=== PATIENT | female | born 1985 | race Caucasian/White ===

== ENCOUNTER 2017-09-04 19:31 | Observation (INO) | payer OTHER ==
[2017-09-04 20:21] LABS: PLATELET COUNT 284 10^3/uL (150-400)
[2017-09-04] MEDS ORDERED: NS 1,000 ML IV ONE (20:53)
[2017-09-04] MEDS ORDERED: fentaNYL 100 MCG/2 ML INJ IVP ONE (20:53)
--- NOTE | 2017-09-04 22:55 | EDPHY ---
H & P Time Seen by Provider: 09/04/17 19:58 HPI/ROS: CHIEF COMPLAINT: Vaginal bleeding, pelvic pain HISTORY OF PRESENT ILLNESS: 32-year-old female presents to the emergency department with left lower quadrant abdominal pain and vaginal bleeding. The patient states that she had her last normal menstrual period on 06/24/2017 and states that she has not stopped bleeding since that time. Now 11 days later she continues to have bright red vaginal bleeding. She states that it was much heavier today. She is not passing clots. She is using pads and is soaking a pad within 2 hours. She has an IUD. She does not think she is . She has some mild lower back discomfort. She denies chest pain or difficulty breathing. No fevers or chills. No headache. REVIEW OF SYSTEMS: Constitutional: No fever, no chills. Eyes: No double or blurry vision. ENT: No sore throat. Respiratory: No cough, no shortness of breath. Cardiac: No chest pain. Gastrointestinal: Abdominal pain as above. No vomiting or diarrhea. Genitourinary: No dysuria. Musculoskeletal: No neck or back pain. Skin: No rashes. Neurological: No headache. Past Medical/Surgical History: ParaGard IUD Social History: Single Smoking Status: Never smoked Physical Exam: General Appearance: Alert, no distress. Vital signs are stable. Boyfriend at bedside. Eyes: Pupils equal and round. Extraocular motions are all intact. ENT: Mouth: Mucous membranes moist. Respiratory: No wheezing, rhonchi, or rales, lungs are clear to auscultation. Cardiovascular: Regular rate and rhythm. Gastrointestinal: Abdomen is soft. She has tenderness with palpation in the left lower quadrant. There is no rebound, guarding or masses noted. No CVA tenderness bilaterally. Neurological: Alert and oriented x 3, cranial nerves II through XII grossly intact Skin: Warm and dry, no rashes. Musculoskeletal: Nontender to palpate along the cervical, thoracic or lumbar spine. Neck is supple. Extremities: Full range of motion and no peripheral edema. Psychiatric: Patient is oriented X 3, there is no agitation. Constitutional: Initial Vital Signs Temperature (C) 36.9 C 09/04/17 19:40 Heart Rate 99 09/04/17 19:40 Respiratory Rate 16 09/04/17 19:40 Blood Pressure 114/87 H 09/04/17 19:40 O2 Sat (%) 98 09/04/17 19:40 O2 Delivery Mode Room Air Allergies/Adverse Reactions: lamotrigine [From Lamictal] Allergy (Verified 09/04/17 19:44) Home Medications: Medication Instructions Recorded IBUPROFEN 09/04/17 SUMAtriptan 09/04/17 Medical Decision Making - Diagnostics Imaging Results: Imaging Impressions Obstetrics Ultrasound 09/04/17 20:53 Impression: 1. No intrauterine gestational sac identified. 2. Thick-walled cystic structure in the left ovary may represent an ectopic gestational sac. No pole is identified. 3. Moderate simple appearing free fluid in the cul-de-sac, adnexa and in Morison's pouch. 4. Intrauterine device is in place. Dr. Mullins discussed these findings by telephone with CAIT CORONA on 2016 at 22:56 hours. Imaging: Discussed imaging studies w/ call center dispatcher Radiologist ED Course/Re-evaluation: 32-year-old female presents to the emergency department with vaginal bleeding and pelvic pain. The patient is not concerned about sexually transmitted infections. She is monogamous with her boyfriend. Her boyfriend has no symptoms. Laboratory studies reveal hematocrit of 37.3%. Her vital signs are stable. Pelvic ultrasound has been ordered and is pending. Patient had a positive HCG. I explained to the patient that I was concerned about possible ectopic . Patient was kept NPO. She did request fentanyl for pain. I spoke with the on-call OBGYN, Dr. Michael Kee, who came to evaluate the patient in the emergency department at 11:45 p.m.. Her vital signs are stable. She is not tachycardic. Patient will be admitted to Dr. Kee. Differential Diagnosis: Including but not limited to ectopic , dysfunctional uterine bleeding, IUD malposition, intrauterine - Data Points Laboratory Results: Laboratory Results 09/04/17 20:05 09/04/17 20:05 09/04/17 09/04/17 09/04/17 22:50 20:05 20:05 WBC RBC Hgb Hct MCV MCH MCHC RDW Plt Count MPV Neut % (Auto) Lymph % (Auto) [place] % (Auto) Eos % (Auto) Baso % (Auto) Nucleat RBC Rel Count Absolute Neuts (auto) Absolute Lymphs (auto) Absolute Monos (auto) Absolute Eos (auto) Absolute Basos (auto) Absolute Nucleated RBC Immature Gran % Immature Gran # Sodium Potassium Chloride Carbon Dioxide Anion Gap BUN Creatinine Estimated GFR Glucose Calcium Beta HCG, Qual Beta HCG, Quant 236.97 mIU/mL H mIU/mL (0.00-4.83) Urine Color PALE YELLOW Urine Appearance CLEAR Urine pH 6.0 (5.0-7.5) Ur Specific [place] 1.004 (1.002-1.030) Urine Protein NEGATIVE (NEGATIVE) Urine Ketones NEGATIVE (NEGATIVE) Urine Blood 3+ H (NEGATIVE) Urine Nitrate NEGATIVE (NEGATIVE) Urine Bilirubin NEGATIVE (NEGATIVE) Urine Urobilinogen NEGATIVE EU EU (0.2-1.0) Ur Leukocyte Esterase NEGATIVE (NEGATIVE) Urine RBC 1-3 /hpf /hpf (0-3) Urine WBC 1-3 /hpf /hpf (0-3) Ur Epithelial Cells TRACE /lpf /lpf (NONE-1+) Urine Bacteria 1+ /hpf H /hpf (NONE SEEN) Urine Glucose NEGATIVE (NEGATIVE) Patient ABO/Rh B POSITIVE 09/04/17 09/04/17 09/04/17 20:05 20:05 20:05 WBC 9.52 10^3/uL H 10^3/uL (3.80-9.50) RBC 4.47 10^6/uL 10^6/uL (4.18-5.33) Hgb 12.5 g/dL L g/dL (12.6-16.3) Hct 37.3 % L % (38.0-47.0) MCV 83.4 fL fL (81.5-99.8) MCH 28.0 pg pg (27.9-34.1) MCHC 33.5 g/dL g/dL (32.4-36.7) RDW 14.8 % % (11.5-15.2) Plt Count 284 10^3/uL 10^3/uL (150-400) MPV 11.0 fL fL (8.7-11.7) Neut % (Auto) 63.1 % % (39.3-74.2) Lymph % (Auto) 27.0 % % (15.0-45.0) [place] % (Auto) 6.8 % % (4.5-13.0) Eos % (Auto) 2.2 % % (0.6-7.6) Baso % (Auto) 0.6 % % (0.3-1.7) Nucleat RBC Rel Count 0.0 % % (0.0-0.2) Absolute Neuts (auto) 6.00 10^3/uL 10^3/uL (1.70-6.50) Absolute Lymphs (auto) 2.57 10^3/uL 10^3/uL (1.00-3.00) Absolute Monos (auto) 0.65 10^3/uL 10^3/uL (0.30-0.80) Absolute Eos (auto) 0.21 10^3/uL 10^3/uL (0.03-0.40) Absolute Basos (auto) 0.06 10^3/uL 10^3/uL (0.02-0.10) Absolute Nucleated RBC 0.00 10^3/uL 10^3/uL (0-0.01) Immature Gran % 0.3 % % (0.0-1.1) Immature Gran # 0.03 10^3/uL 10^3/uL (0.00-0.10) Sodium 140 mEq/L mEq/L (134-144) Potassium 3.3 mEq/L L mEq/L (3.5-5.2) Chloride 102 mEq/L mEq/L (97-110) Carbon Dioxide 26 mEq/l mEq/l (22-31) Anion Gap 12 mEq/L mEq/L (8-16) BUN 9 mg/dL mg/dL (7-23) Creatinine 0.7 mg/dL mg/dL (0.6-1.0) Estimated GFR > 60 Glucose 95 mg/dL mg/dL (70-100) Calcium 9.2 mg/dL mg/dL (8.5-10.4) Beta HCG, Qual POSITIVE Beta HCG, Quant Urine Color Urine Appearance Urine pH Ur Specific [place] Urine Protein Urine Ketones Urine Blood Urine Nitrate Urine Bilirubin Urine Urobilinogen Ur Leukocyte Esterase Urine RBC Urine WBC Ur Epithelial Cells Urine Bacteria Urine Glucose Patient ABO/Rh Medications Given: Discontinued Medications Fentanyl (Sublimaze) 50 mcg IVP EDNOW ONE Stop: 09/04/17 20:54 Last Admin: 09/04/17 21:05 Dose: 50 mcg Sodium Chloride (Ns) 1,000 mls @ 0 mls/hr IV ONCE ONE PRN Reason: Wide Open Stop: 09/04/17 20:54 Last Admin: 09/04/17 21:05 Dose: 1,000 mls Departure - Departure Disposition: [facility] Inpatient Acute Clinical Impression: Vaginal bleeding, Possible ectopic Abdominal pain Qualifiers: Abdominal location: left lower quadrant Qualified Code(s): R10.32 - Left lower quadrant pain Condition: Good
--- NOTE | 2017-09-05 01:07 | PDGENHP ---
History and Physical - Chief Complaint LLQ pain, vaginal bleeding - History of Present Illness 32-year-old white female presented to [facility] ED this evening with c/o left lower quadrant pain and vaginal bleeding. Patient reports LMP on 06/24/17 and states that she has not stopped bleeding since 06/24. Bleeding from vagina has been bright red for past 11 days. Bleeding was heavier today than previous. She is not passing clots. She has Paragard IUD in uterus since 2007 or 2008. She says pain has been present during this same period of time. It started in LLQ and radiates across pelvis to RLQ. She denies fever or chills. UPT was positive. Quantitative beta HCG was 237. Transvaginal and transabdominal US was performed. US revealed IUD in uterus. No obvious IUP. Mild to moderate, non- complex free fluid in peritoneal cavity. Small cystic structures on both left and right ovaries. No obvious findings for ectopic seen on US, but cannot be ruled out by US either. I was called ED physician to evaluate patient. She has not previously been . She denies previous abdominal or pelvic surgery. History Information - Allergies/Home Medication List Allergies/Adverse Reactions: lamotrigine [From Lamictal] Allergy (Verified 09/04/17 19:44) Home Medications: IBUPROFEN 09/04/17 [Last Taken Unknown] SUMAtriptan 09/04/17 [Last Taken Unknown] I have personally reviewed and updated: family history, medical history, social history, surgical history Past Medical History: h/o PFO, h/o migraines, h/o pain clinic management of chronic headache pain - Surgical History Reports: no pertinent surgical hx Additional surgical history: wisdom teeth, wrist/thumb surgery - Family History Positive for: non-pertinent - Social History Smoking Status: Never smoked Alcohol Use: Occasionally Additional social history: boyfriend, monogamous; previously went to pain clinic for HAs Review of Systems Review of Systems: ROS: 10pt was reviewed & negative except for what was stated in HPI & below Physical Exam Physical Exam: Temp Pulse Resp BP Pulse Ox 36.9 C 96 16 99/63 L 96 09/04/17 19:40 09/04/17 23:20 09/04/17 23:20 09/04/17 23:20 09/04/17 23:20 Constitutional: no apparent distress, appears nourished Cardiovascular: regular rate and rhythym Respiratory: no respiratory distress, clear to auscultation Gastrointestinal: normoactive bowel sounds, tenderness, other (non-distended, no guarding, no rebound) Genitourinary: other (SSE: BRB in vagina, no vaginal or cervical lacerations, cervix closed, very short IUD strings extruding from os) Skin: warm, normal color Musculoskeletal: full muscle strength, no muscle tenderness Neurologic: AAOx3, sensation intact bilaterally Psychiatric: interacting appropriately, not anxious Lab Data & Imaging Review 09/04/17 20:05 09/04/17 20:05 WBC 9.52 10^3/uL (3.80-9.50) H 09/04/17 20:05 RBC 4.47 10^6/uL (4.18-5.33) 09/04/17 20:05 Hgb 12.5 g/dL (12.6-16.3) L 09/04/17 20:05 Hct 37.3 % (38.0-47.0) L 09/04/17 20:05 MCV 83.4 fL (81.5-99.8) 09/04/17 20:05 MCH 28.0 pg (27.9-34.1) 09/04/17 20:05 MCHC 33.5 g/dL (32.4-36.7) 09/04/17 20:05 RDW 14.8 % (11.5-15.2) 09/04/17 20:05 Plt Count 284 10^3/uL (150-400) 09/04/17 20:05 MPV 11.0 fL (8.7-11.7) 09/04/17 20:05 Neut % (Auto) 63.1 % (39.3-74.2) 09/04/17 20:05 Lymph % (Auto) 27.0 % (15.0-45.0) 09/04/17 20:05 [place] % (Auto) 6.8 % (4.5-13.0) 09/04/17 20:05 Eos % (Auto) 2.2 % (0.6-7.6) 09/04/17 20:05 Baso % (Auto) 0.6 % (0.3-1.7) 09/04/17 20:05 Nucleat RBC Rel Count 0.0 % (0.0-0.2) 09/04/17 20:05 Absolute Neuts (auto) 6.00 10^3/uL (1.70-6.50) 09/04/17 20:05 Absolute Lymphs (auto) 2.57 10^3/uL (1.00-3.00) 09/04/17 20:05 Absolute Monos (auto) 0.65 10^3/uL (0.30-0.80) 09/04/17 20:05 Absolute Eos (auto) 0.21 10^3/uL (0.03-0.40) 09/04/17 20:05 Absolute Basos (auto) 0.06 10^3/uL (0.02-0.10) 09/04/17 20:05 Absolute Nucleated RBC 0.00 10^3/uL (0-0.01) 09/04/17 20:05 Immature Gran % 0.3 % (0.0-1.1) 09/04/17 20:05 Immature Gran # 0.03 10^3/uL (0.00-0.10) 09/04/17 20:05 Sodium 140 mEq/L (134-144) 09/04/17 20:05 Potassium 3.3 mEq/L (3.5-5.2) L 09/04/17 20:05 Chloride 102 mEq/L (97-110) 09/04/17 20:05 Carbon Dioxide 26 mEq/l (22-31) 09/04/17 20:05 Anion Gap 12 mEq/L (8-16) 09/04/17 20:05 BUN 9 mg/dL (7-23) 09/04/17 20:05 Creatinine 0.7 mg/dL (0.6-1.0) 09/04/17 20:05 Estimated GFR > 60 09/04/17 20:05 Glucose 95 mg/dL (70-100) 09/04/17 20:05 Calcium 9.2 mg/dL (8.5-10.4) 09/04/17 20:05 Beta HCG, Qual POSITIVE 09/04/17 20:05 Beta HCG, Quant 236.97 mIU/mL (0.00-4.83) H 09/04/17 20:05 Urine Color PALE YELLOW 09/04/17 20:05 Urine Appearance CLEAR 09/04/17 20:05 Urine pH 6.0 (5.0-7.5) 09/04/17 20:05 Ur Specific [place] 1.004 (1.002-1.030) 09/04/17 20:05 Urine Protein NEGATIVE (NEGATIVE) 09/04/17 20:05 Urine Ketones NEGATIVE (NEGATIVE) 09/04/17 20:05 Urine Blood 3+ (NEGATIVE) H 09/04/17 20:05 Urine Nitrate NEGATIVE (NEGATIVE) 09/04/17 20:05 Urine Bilirubin NEGATIVE (NEGATIVE) 09/04/17 20:05 Urine Urobilinogen NEGATIVE EU (0.2-1.0) 09/04/17 20:05 Ur Leukocyte Esterase NEGATIVE (NEGATIVE) 09/04/17 20:05 Urine RBC 1-3 /hpf (0-3) 09/04/17 20:05 Urine WBC 1-3 /hpf (0-3) 09/04/17 20:05 Ur Epithelial Cells TRACE /lpf (NONE-1+) 09/04/17 20:05 Urine Bacteria 1+ /hpf (NONE SEEN) H 09/04/17 20:05 Urine Glucose NEGATIVE (NEGATIVE) 09/04/17 20:05 Patient ABO/Rh B POSITIVE 09/04/17 22:50 Imaging Review: Discussed US results with radiologist and US tech in radiology suite. Free fluid is non-complex and not obviously a significant volume of blood. Adnexal cysts are also inconclusive for ectopic . No obvious IUP. Intrauterine IUD in proper location. Assessment & Plan Assessment: 32-year-old G1 white female with of unknown location. Possible miscarriage, possible early IUP, possible ectopic , possible ruptured ectopic . Moderate pain, moderate vaginal bleeding. Plan: Plan is to admit overnight for observation, serial vital signs, and serial labs. Will watch closely and re-evaluate closely for possible need for surgery.
[2017-09-05] MEDS: HYDROCODONE/APAP 5/325 TAB PO PRN ×5 (02:49→21:35)
--- NOTE | 2017-09-05 08:28 | SOAPPROG ---
SOAP Progress Note Assessment/Plan: Assessment: 32 yo G1 with of unknown location, differential diagnosis includes miscarriage, early IUP, ectopic . Plan: Continue close monitoring today, including serial abdominal exams, possible laparoscopy today. 09/05/17 08:21 Subjective: Patient reports good pain coverage overnight. She slept. She took [place] once overnight. She reports bleeding on half a pad since 10PM last night. She denies significant faintness or weakness. She wants to let pain medication wear off so she can get an accurate idea of her pelvic/abdominal pain. Objective: Vital Signs Temp Pulse Resp BP Pulse Ox 37.0 C 85 20 96/53 L 96 09/05/17 05:30 09/05/17 05:30 09/05/17 05:30 09/05/17 05:30 09/05/17 05:30 Laboratory Results 09/05/17 05:45 09/04/17 09/05/17 09/06/17 05:59 05:59 05:59 Intake Total 1000 Balance 1000 NAD Lungs clear Abdomen tender to deep palpation (suprapubic and LLQ), no rebound Extremities: no excessive edema Pelvic exam: deferred this AM HCT: 32.7 (down from 37 @ ED admission last night) ICD10 Worksheet Patient Problems: Problems Problem Status Onset Abdominal pain Acute Vaginal bleeding Acute
[2017-09-05] MEDS: LR 1,000 ML IV SCH (09:40)
--- NOTE | 2017-09-05 10:35 | SOAPPROG ---
SOYARITZA Progress Note Assessment/Plan: Assessment: 1) 32 y/o with LMP 08/24 with Paragard IUD in place with a of unknown location - early IUP vs. ectopic Plan: Pt is hemodynamically stable at this time without an acute abdomen, will hold off on surgery Reviewed u/s results; no IUP seen, R ovary with likely corpus luteal cyst; L ovary with cystic structure; free fluid is simple appearing and less likely blood Will check beta HCG in am to see if it appropriately rises Will cont to closely monitor for ectopic sx's Analgesics prn Advance diet as gaudencio now NPO after mn for possible surgery in am 09/06 if inappropriate rise in HCG or ectopic symptoms develop 09/05/17 10:45 Subjective: Pt seen and examined. Doing well, states pain 4-5/10 and that is what is has been throughout the night. Some mild LLQ pain that radiates to right side. Denies any f/c/n/v/CP or SOB. Vaginal bleeding is minimal at this time-changed pad once this am. Objective: Vital Signs Temp Pulse Resp BP Pulse Ox 37.0 C 85 20 96/53 L 96 09/05/17 05:30 09/05/17 05:30 09/05/17 05:30 09/05/17 05:30 09/05/17 05:30 Laboratory Results 09/05/17 05:45 09/04/17 09/05/17 09/06/17 05:59 05:59 05:59 Intake Total 1000 Balance 1000 Physical Exam - Physical Exam General Appearance: WD/WN, alert, no apparent distress Respiratory: lungs clear, normal breath sounds Cardiac/Chest: regular rate, rhythm Abdomen: normal bowel sounds, soft, other (LLQ tenderness-mild; no rebound, no guarding) Pelvic Exam: deferred Skin: normal color, warm/dry Extremities: non-tender, normal inspection Neuro/Psych: alert, normal mood/affect, oriented x 3 ICD10 Worksheet Patient Problems: Problems Problem Status Onset Abdominal pain Acute Acute Vaginal bleeding Acute - ICD10 Problem Qualifiers (1)
--- NOTE | 2017-09-05 16:32 | SOAPPROG ---
CARLOS ENRIQUE Progress Note Assessment/Plan: Assessment: 1) 32 y/o with LMP 08/24 with Par[address] IUD in place with a of unknown location - early IUP vs. ectopic Plan: Pt with pain that is now 6/10, relief with heating pad and [place] x2 Will keep NPO for now if surgery needs to be done secondary to worsening pain Discussed removing IUD and pt does not want it removed at this time, but knows that it will need to be removed Will cont to closely monitor for ectopic sx's 09/05/17 16:28 Subjective: Pt states pain is now 6/10, but relief with [place] and heating pad. Pain was radiating up to her flank on L side. Minimal spotting noted. Mild nausea. Objective: Vital Signs Temp Pulse Resp BP Pulse Ox 36.7 C 74 18 98/64 L 99 09/05/17 08:00 09/05/17 08:00 09/05/17 08:00 09/05/17 08:00 09/05/17 08:00 Laboratory Results 09/05/17 05:45 09/04/17 09/05/17 09/06/17 05:59 05:59 05:59 Intake Total 1000 Balance 1000 Physical Exam - Physical Exam General Appearance: WD/WN, alert, no apparent distress Abdomen: soft, other (mild-mod TTP LLQ; no rebound or guarding) Pelvic Exam: deferred Neuro/Psych: alert, normal mood/affect, oriented x 3 ICD10 Worksheet Patient Problems: Problems Problem Status Onset Abdominal pain Acute Acute Vaginal bleeding Acute - ICD10 Problem Qualifiers (1)
--- NOTE | 2017-09-05 16:32 | SOAPPROG ---
CARLOS ENRIQUE Progress Note Assessment/Plan: Assessment: 1) 32 y/o with LMP 08/24 with [address] IUD in place with a of unknown location - early IUP vs. ectopic Plan: Pt with pain that is now 6/10, relief with heating pad and [place] x2 Will keep NPO for now if surgery needs to be done secondary to worsening pain Discussed removing IUD and pt does not want it removed at this time, but knows that it will need to be removed Will cont to closely monitor for ectopic sx's 09/05/17 16:28 Subjective: Pt states pain is now 6/10, but relief with [place] and heating pad. Pain was radiating up to her flank on L side. Minimal spotting noted. Mild nausea. Objective: Vital Signs Temp Pulse Resp BP Pulse Ox 36.7 C 74 18 98/64 L 99 09/05/17 08:00 09/05/17 08:00 09/05/17 08:00 09/05/17 08:00 09/05/17 08:00 Laboratory Results 09/05/17 05:45 09/04/17 09/05/17 09/06/17 05:59 05:59 05:59 Intake Total 1000 Balance 1000 Physical Exam - Physical Exam General Appearance: WD/WN, alert, no apparent distress Abdomen: soft, other (mild-mod TTP LLQ; no rebound or guarding) Pelvic Exam: deferred Neuro/Psych: alert, normal mood/affect, oriented x 3 ICD10 Worksheet Patient Problems: Problems Problem Status Onset Abdominal pain Acute Acute Vaginal bleeding Acute - ICD10 Problem Qualifiers (1)
[2017-09-05] MEDS: ONDANSETRON DISINTEGRATING 4 MG TAB PO PRN (21:35)
[2017-09-06] MEDS: LR 1,000 ML IV SCH ×2 (00:18→07:59)
[2017-09-06] MEDS: ONDANSETRON DISINTEGRATING 4 MG TAB PO PRN ×2 (03:05→07:19)
[2017-09-06] MEDS: HYDROCODONE/APAP 5/325 TAB PO PRN ×2 (03:05→07:19)
--- NOTE | 2017-09-06 07:40 | SOAPPROG ---
CARLOS ENRIQUE Progress Note Assessment/Plan: Assessment: 32 yo G1 with of unknown location, differential diagnosis includes miscarriage, early IUP, ectopic . Plan: Continue close monitoring today, including serial abdominal exams, possible laparoscopy today. 09/05/17 08:21 09/06/17 07:33 32 yo G1 with of unknown location, differential diagnosis includes miscarriage, early IUP, ectopic . Pain persists overnight. BHCG has abnormal increase over 24 hours. Concern for ectopic . Plan: After reviewing management options in context of patient's persistent and worsening abdominal pain, plan will be for removal of IUD and diagnostic laparoscopy for treatment of suspected ectopic in adnexa. Risks, benefits and alternatives reviewed with patient. She has consented to proceed with surgery. Subjective: Patient reports persistent LLQ pain. She required and still requires narcotic pain meds to tolerate pain. She has been NPO overnight. She reports minimal vaginal bleeding. She denies faintness, weakness. Objective: Vital Signs Temp Pulse Resp BP Pulse Ox 36.3 C 75 16 105/66 94 09/06/17 03:07 09/06/17 03:07 09/06/17 03:07 09/06/17 03:07 09/06/17 03:07 Laboratory Results 09/05/17 05:45 09/05/17 09/06/17 09/07/17 05:59 05:59 05:59 Intake Total 0852 881 2238 Balance 1436 077 9927 Vitals: Reviewed, stable General: NAD, AAOx3 Lungs: clear to auscultation in all kaur Heart: RRR Abdomen: slightly guarded, non-distended, tender to deep palpation (suprapubic and LLQ) Pelvic exam: deferred this AM Extremities: no excessive swelling or edema in BLE ICD10 Worksheet Patient Problems: Problems Problem Status Onset Abdominal pain Acute Acute Vaginal bleeding Acute
--- NOTE | 2017-09-06 07:40 | SOAPPROG ---
CARLOS ENRIQUE Progress Note Assessment/Plan: Assessment: 32 yo G1 with of unknown location, differential diagnosis includes miscarriage, early IUP, ectopic . Plan: Continue close monitoring today, including serial abdominal exams, possible laparoscopy today. 09/05/17 08:21 09/06/17 07:33 32 yo G1 with of unknown location, differential diagnosis includes miscarriage, early IUP, ectopic . Pain persists overnight. BHCG has abnormal increase over 24 hours. Concern for ectopic . Plan: After reviewing management options in context of patient's persistent and worsening abdominal pain, plan will be for removal of IUD and diagnostic laparoscopy for treatment of suspected ectopic in adnexa. Risks, benefits and alternatives reviewed with patient. She has consented to proceed with surgery. Subjective: Patient reports persistent LLQ pain. She required and still requires narcotic pain meds to tolerate pain. She has been NPO overnight. She reports minimal vaginal bleeding. She denies faintness, weakness. Objective: Vital Signs Temp Pulse Resp BP Pulse Ox 36.3 C 75 16 105/66 94 09/06/17 03:07 09/06/17 03:07 09/06/17 03:07 09/06/17 03:07 09/06/17 03:07 Laboratory Results 09/05/17 05:45 09/05/17 09/06/17 09/07/17 05:59 05:59 05:59 Intake Total 0045 297 6130 Balance 7726 655 4054 Vitals: Reviewed, stable General: NAD, AAOx3 Lungs: clear to auscultation in all kaur Heart: RRR Abdomen: slightly guarded, non-distended, tender to deep palpation (suprapubic and LLQ) Pelvic exam: deferred this AM Extremities: no excessive swelling or edema in BLE ICD10 Worksheet Patient Problems: Problems Problem Status Onset Abdominal pain Acute Acute Vaginal bleeding Acute
--- NOTE | 2017-09-06 07:40 | SOAPPROG ---
[facility] Progress Note Assessment/Plan: Assessment: 32 yo G1 with of unknown location, differential diagnosis includes miscarriage, early IUP, ectopic . Plan: Continue close monitoring today, including serial abdominal exams, possible laparoscopy today. 09/05/17 08:21 09/06/17 07:33 32 yo G1 with of unknown location, differential diagnosis includes miscarriage, early IUP, ectopic . Pain persists overnight. BHCG has abnormal increase over 24 hours. Concern for ectopic . Plan: After reviewing management options in context of patient's persistent and worsening abdominal pain, plan will be for removal of IUD and diagnostic laparoscopy for treatment of suspected ectopic in adnexa. Risks, benefits and alternatives reviewed with patient. She has consented to proceed with surgery. Subjective: Patient reports persistent LLQ pain. She required and still requires narcotic pain meds to tolerate pain. She has been NPO overnight. She reports minimal vaginal bleeding. She denies faintness, weakness. Objective: Vital Signs Temp Pulse Resp BP Pulse Ox 36.3 C 75 16 105/66 94 09/06/17 03:07 09/06/17 03:07 09/06/17 03:07 09/06/17 03:07 09/06/17 03:07 Laboratory Results 09/05/17 05:45 09/05/17 09/06/17 09/07/17 05:59 05:59 05:59 Intake Total 8057 764 2219 Balance 9070 615 2769 Vitals: Reviewed, stable General: NAD, AAOx3 Lungs: clear to auscultation in all kaur Heart: RRR Abdomen: slightly guarded, non-distended, tender to deep palpation (suprapubic and LLQ) Pelvic exam: deferred this AM Extremities: no excessive swelling or edema in BLE ICD10 Worksheet Patient Problems: Problems Problem Status Onset Abdominal pain Acute Acute Vaginal bleeding Acute
[2017-09-06] MEDS ORDERED: LR 1,000 ML IV ONE (11:24)
[2017-09-06] MEDS ORDERED: MIDAZOLAM 2 MG/2 ML VIAL IVP ONE (11:31)
--- NOTE | 2017-09-06 11:32 | PDANEPAE ---
ANE History of Present Illness ectopic ANE Past Medical History - Pulmonary History Hx Oxygen in Use at Home: No Hx Sleep Apnea: No Sleep Apnea Screening Result - Last Documented: Negative - Endocrine History Hx Diabetes: No ANE Review of Systems Review of Systems: ANE Patient History - Allergies Allergies/Adverse Reactions: lamotrigine [From Lamictal] Allergy (Verified 09/04/17 19:44) - Home Medications Home Medications: IBUPROFEN 09/04/17 [Last Taken Unknown] SUMAtriptan 09/04/17 [Last Taken Unknown] - NPO status NPO Since - Liquids (Date): 09/05/17 NPO Since - Liquids (Time): 14:00 NPO Since - Solids (Date): 09/05/17 NPO Since - Solids (Time): 14:00 - Smoking Hx Smoking Status: Never smoked - Alcohol Use Alcohol Use: Occasionally ANE Labs/Vital Signs - Labs Result Diagrams: 09/05/17 05:45 09/04/17 20:05 - Vital Signs Blood Pressure: 108/68 Heart Rate: 87 Respiratory Rate: 14 O2 Sat (%): 96 Height: 177.8 cm Weight: 56.699 kg ANE Physical Exam - Airway Neck exam: FROM Mallampati Score: Class 1 Mouth exam: normal dental/mouth exam - Pulmonary Pulmonary: no respiratory distress - Cardiovascular Cardiovascular: regular rate and rhythym - ASA Status ASA Status: II ANE Anesthesia Plan Anesthesia Plan: general endotracheal anesthesia
[2017-09-06] MEDS ORDERED: ceFAZolin 2 GM/SWFI 2 GM/20 ML SYR IVP ONE (11:45)
--- NOTE | 2017-09-06 11:45 | PDHPUP ---
History & Physical Update H&P update statement: This history and physical update is based on an assessment of the patient which was completed after admission or registration (within 24 hours), but prior to the surgery/procedure. H&P update: H&P reviewed & patient examined, no change in patient's condition since H&P completed
[2017-09-06] MEDS ORDERED: ceFAZolin 2 GM/DEXTROSE 100 ML IV ONE (12:00)
[2017-09-06] MEDS ORDERED: PROPOFOL 200 MG/20 ML VIAL ONE (12:02)
[2017-09-06] MEDS ORDERED: ROCURONIUM 50 MG/5 ML VIAL ONE ×2 (12:02→12:32)
[2017-09-06] MEDS ORDERED: fentaNYL 100 MCG/2 ML INJ ONE ×3 (12:02→13:25)
[2017-09-06] MEDS ORDERED: BUPIVACAINE 0.25% 30 ML SDV ONE (12:24)
[2017-09-06] MEDS ORDERED: DEXAMETHASONE 4 MG/ML VIAL ONE (12:32)
[2017-09-06] MEDS ORDERED: ONDANSETRON 4 MG/2 ML VIAL ONE (12:32)
[2017-09-06] MEDS ORDERED: PROMETHAZINE HCL 25 MG/ML INJ IVP PRN (12:52)
[2017-09-06] MEDS ORDERED: OXYCODONE/APAP 5/325 TAB PO PRN ×2 (12:52→13:33)
[2017-09-06] MEDS ORDERED: NALOXONE HCL 0.4 MG/ML INJ IVP PRN (12:52)
[2017-09-06] MEDS ORDERED: ACETAMINOPHEN 500 MG TAB PO PRN (12:52)
[2017-09-06] MEDS ORDERED: ONDANSETRON 4 MG/2 ML VIAL IVP PRN (12:52)
[2017-09-06] MEDS ORDERED: HYDROmorphONE/DILAUDID 1 MG/ML INJ IVP PRN (12:52)
[2017-09-06] MEDS ORDERED: SILVER NITRATE APPLICATOR 1 APPL TP ONE (13:07)
[2017-09-06] MEDS ORDERED: HYDROmorphONE/DILAUDID 1 MG/ML INJ ONE (13:20)
[2017-09-06] MEDS ORDERED: MEPERIDINE 25 MG/ML SYR IVP ONE (13:21)
--- NOTE | 2017-09-06 13:21 | POSTANESTH ---
Post Anesthetic Evaluation Cardiovascular Status: Normal, Stable Respiratory Status: Normal, Stable Level of Consciousness/Mental Status: Can Participate in Eval Pain Control: Adequate, Prn Tx Ordered Complications Possibly Related to Anesthesia: None Noted
[2017-09-06] MEDS ORDERED: MEPERIDINE 25 MG/ML SYR ONE (13:25)
[2017-09-06] MEDS: fentaNYL 100 MCG/2 ML INJ IVP PRN ×2 (13:26→13:37)
--- NOTE | 2017-09-06 13:32 | POSTOPPROG ---
Post Op Note Date of Operation: 09/06/17 Surgeon: Pk Kee [employer] Back Tender: Jil Castellanos Anesthesiologist: Lisa Jensen Pre-op Diagnosis: LLQ pain, vaginal bleeding Post-op Diagnosis: Left fallopian tube ectopic pregnacy, hemoperitoneum Indication: 32 yo G1 WF with LLQ pain, suspect rupt ectopic Procedure: Diagnostic laparoscopy, left salpingectomy Findings: hemoperitoneum, left tubal Inf/Abcess present in the surg proc area at time of surgery?: No Depth: Organ Space EBL: 50-100 Total fluids administered: 1500 mL Complications: None
[2017-09-06 16:06] VITALS: RESP 16
[2017-09-06 17:52] VITALS: BP 115/81; PULSE 86; TEMP 98.3; O2SAT 96
--- NOTE | 2017-09-06 22:51 | SUROPNOTE ---
[facility] Operative Report - Surgery OPERATIVE REPORT DATE OF OPERATION: 09/06/17 SURGEON: Michael Kee MD VP HUMAN RESOURCES: Jil Castellanos MD ANESTHESIA: General Endotracheal ANESTHESIOLOGIST: Lisa Jensen PREOPERATIVE DIAGNOSES: 1. Left lower quadrant pain. 2. Vaginal bleeding. 3. No IUP on US 4. Quantitative beta-HCG with inappropriate 48-hr rise. 5. IUD in endometrial cavity. POSTOPERATIVE DIAGNOSIS: 1. Left lower quadrant pain. 2. Vaginal bleeding. 3. No IUP on US, but concerns for adnexal . 4. Quantitative beta-HCG with inappropriate 48-hr rise. 5. Left fallopian tube ectopic . 6. Paragard IUD removed. PROCEDURES PERFORMED: 1. Removal of Paragard IUD. 2. Diagnostic laparoscopy. 3. Left salpingectomy. FINDINGS: 1. Hemoperitoneum. 2. Normal-appearing right fallopian tube, right ovary, left ovary and uterus. 3. Enlarged isthmus of left fallopian tube concerning for ectopic . SPECIMENS: 1. Left fallopian tube and contents. EBL: 100 mL INDICATIONS: 32-year-old G1 white female with suspected ruptured peritoneal ectopic with worsening pain and abnormally rising quantitative beta- HCG levels. DESCRIPTION OF PROCEDURE: After appropriate consent was obtained patient was taken to OR. General anesthesia was found to be adequate. 1 gram Kefzol given IV. Patient was prepped and draped according to usual sterile fashion. Time out was performed. Morales catheter was anchored. Speculum was placed in vagina. Long polyp forceps were used to grasp IUD string and IUD was removed without difficulty. Single-tooth tenaculum was applied to anterior cervix and [place] uterine manipulator was placed through external os and attached to tenaculum. Attention was moved to abdomen. Local anesthetic was injected at proposed incision sites (umbilical, left lower quadrant and right lower quadrant, respectively). A 5 mm incision was made at umbilicus and through this incision a 5 mm trocar was introduced (using Optiview method) into peritoneal cavity. CO2 gas was insufflated into peritoneal cavity to a pressure of 15 mmHg. A systematic inspection with laparoscope and patient in Trendelenburg position was performed with findings as noted above. No evidence of bowel, bladder or vessel injury from trocar entry was seen. Additional (left-10 mm-and right-5 mm- lower quadrant trocars were introduced using direct visualization. Dark blood in posterior cul-de-sac was removed with suction. Blood clots throughout pelvis was also removed with suction and irrigation device. The pelvis was closely inspected with attention drawn to left fallopian tube. Tube was elevated with blunt graspers. It was ligated from broad ligament with LigaSure clamp/cut/seal device. Tube was removed at its cornual insertion to uterus. Specimen was sent to pathology. After thorough inspection of peritoneal cavity and pelvis, the 10 mm port was removed and the Beto Dillard endo-fascial repair device was used to reapproximate the fascial separation. 0-Vicryl suture was used for this repair. All remaining instruments, CO2 gas, and trocars were removed. Skin incisions were closed with a subcuticular 4-0 monocryl stitch, steri- strips and bandaged appropriately. At the end of procedure sponge, lap and needle count was correct x 2. Patient tolerated procedure well and she was taken to PACU awake and in stable condition.
--- NOTE | 2017-09-06 23:07 | PDDCSUM ---
Discharge Summary Discharge Summary: Date of Admission: 09/04/17 Date of Discharge: 09/06/17 Admitting Physician: Michael Kee MD Discharging Physician: Michael Kee MD Admitting Diagnoses: 1. LLQ pain 2. Positive test 3. IUD in utero 4. No obvious IUP Discharge Diagnoses: 1. Left fallopian tube ectopic . 2. Hemoperitoneum. 3. IUD removed. Procedures: 1. Diagnostic Laparoscopy. 2. Left salpingectomy. 3. Removal of Paragard IUD. Hospital Course: 32-year-old G1 white female was admitted from ED after presentation with vaginal bleeding, pelvic pain, positive test, no obvious IUP on US, and Paragard IUD in uterus. Patient was admitted for serial abdominal exams, labs and for pain management. Pain worsened, HCT dropped and inappropriate rise in quantitative beta HCG all increased suspicion for intraperitoneal ectopic or ruptured ectopic . Laparoscopy confirmed hemoperitoneum and left fallopian tube . During procedure, IUD was removed, hemoperitoneum was removed and left salpingectomy was performed. Following procedure, patient's pain had improved. She desired discharge home if possible several hours following completion of procedure. Condition: Good. Disposition: Discharge home. Discharge Medications: Percocet 5/325, 1-2 tabs PO q4 hours PRN pain, dispense 40, no refills. Discharge Instructions: Modified bedrest over weekend. No work for one week. Pending Studies: Awaiting pathology report from fallopian tube segment sent today. Follow-up: Michael Kee MD, [facility], for post-operative visit in 2 weeks.
== END 2017-09-06 18:20 | disposition home or self-care (01) ==
LOC: FOB 09-05 01:34
PROVIDERS: ADMIT Obstetrics & Gynecology Gynecology; ATTEND Obstetrics & Gynecology Gynecology
PROC: 0UPD7HZ Removal of Contraceptive Device from Uterus and Cervix, Via Natural or Artificial Opening (ICD-10-PCS; principal; 2017-09-05)
PROC: 0UT64ZZ Resection of Left Fallopian Tube, Percutaneous Endoscopic Approach (ICD-10-PCS; principal; 2017-09-05)
DX: O00.102 Left tubal pregnancy without intrauterine pregnancy (principal); Z97.5 Presence of (intrauterine) contraceptive device
CPT/HCPCS: 58301; 59151; 76801; 96361; 96374; 99285; G0378; J0171; J1100; J1170; J2250; J2405; J2704; J3010